=== PATIENT | male | born 1930 | race Caucasian/White ===

== ENCOUNTER 2019-01-01 10:03 | Emergency (ER) | payer MEDICARE, OTHER ==
[2019-01-01] MEDS ORDERED: ONDANSETRON 4 MG TAB.RAPDIS PO ONE (11:09)
--- NOTE | 2019-01-01 11:11 | ER Document Report ---
ED Medical Screen (RME) - General Chief Complaint: Shortness Of Breath Stated Complaint: DIFFICULTY BREATHING Time Seen by Provider: 01/01/19 11:02 Primary Care Provider: CATA IRBY MD [Primary Care Provider] - Follow up as needed Mode of Arrival: Ambulatory Information source: Patient Notes: 88-year-old male presents to ED for complaint of shortness of breath difficulty breathing lightheadedness and nausea. He states he does have a history of COPD and wears a CPAP pot. He also has a history of cholesterol he has a pacemaker for sick sinus syndrome. He is also got hypothyroid and multiple back surgeries. 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 Patient is alert oriented respirations regular and unlabored his jackelyn ng sounds do sound clear at this time. He does have hyperactive bowel sounds in all 4 quadrants. I have greeted and performed a rapid initial assessment of this patient. A comprehensive ED assessment and evaluation of the patient, analysis of test results and completion of medical decision making process will be conducted by an additional ED providers. Dictation of this chart was performed using voice recognition software; therefore, there may be some unintended grammatical errors. - Related Data Allergies/Adverse Reactions: No Known Allergies Allergy (Verified 01/01/19 10:05) Past Medical History - Social History Chew tobacco use (# tins/day): No Frequency of alcohol use: Occasional - Past Medical History Cardiac Medical History: Reports: Hx Hypercholesterolemia Denies: Hx Heart Attack, Hx Hypertension Pulmonary Medical History: Reports: Hx COPD Denies: Hx Asthma Neurological Medical History: Denies: Hx Cerebrovascular Accident, Hx Seizures Endocrine Medical History: Reports: Hx Diabetes Mellitus Type 2 Renal/ Medical History: Denies: Hx Peritoneal Dialysis GI Medical History: Denies: Hx Hepatitis, Hx Hiatal Hernia, Hx Ulcer Infectious Medical History: Denies: Hx Hepatitis Past Surgical History: Reports: Hx Cardiac Surgery - pacemaker, Hx Orthopedic Surgery - back x 2, hand. Denies: Hx Open Heart Surgery, Hx Pacemaker Physical Exam - Vital signs Vitals: Temp Pulse Resp BP Pulse Ox 97.4 F 96 20 123/71 94 01/01/19 10:04 01/01/19 10:04 01/01/19 10:04 01/01/19 10:04 01/01/19 10:04 Course - Vital Signs Vital signs: Temp Pulse Resp BP Pulse Ox 97.4 F 78 20 123/71 95 01/01/19 10:04 01/01/19 11:08 01/01/19 10:04 01/01/19 10:04 01/01/19 11:08 Doctor's Discharge - Discharge Referrals: CATA IRBY MD [Primary Care Provider] - Follow up as needed
--- NOTE | 2019-01-01 12:07 | RADIOLOGY REPORT (SQ) ---
EXAM DESCRIPTION: CHEST 2 VIEWS COMPLETED DATE/TIME: 01/01/2019 11:50 am REASON FOR STUDY: short of breath light headed COMPARISON: None. EXAM PARAMETERS: NUMBER OF VIEWS: two views TECHNIQUE: Digital Frontal and Lateral radiographic views of the chest acquired. RADIATION DOSE: NA LIMITATIONS: none FINDINGS: LUNGS AND PLEURA: No opacities, masses or pneumothorax. No pleural effusion. MEDIASTINUM AND HILAR STRUCTURES: No masses or contour abnormalities. HEART AND VASCULAR STRUCTURES: Cardiomegaly with left chest multi lead pacer. BONES: No acute findings. HARDWARE: None in the chest. OTHER: No other significant finding. IMPRESSION: Cardiomegaly without acute abnormality of the lungs. No focal airspace opacity. TECHNICAL DOCUMENTATION: JOB ID: [id number] [employer]- All Rights Reserved Reading location - IP/workstation name: [email or web address]
[2019-01-01 12:26] LABS: HEMATOCRIT 37.3 % (37.9-51.0); HEMOGLOBIN 12.5 g/dL (13.5-17.0); MEAN CORPUSCULAR HEMOGLOBIN 29.4 pg (27.0-33.4); MEAN CORPUSCULAR HGB CONC 33.6 g/dL (32.0-36.0); MEAN CORPUSCULAR VOLUME 88 fl (80-97); PLATELET COUNT 165 10^3/uL (150-450); RED BLOOD COUNT 4.26 10^6/uL (4.35-5.55); RED CELL DISTRIBUTION WIDTH 16.7 % (11.5-14.0); WHITE BLOOD COUNT 4.5 10^3/uL (4.0-10.5)
[2019-01-01 12:35] LABS: APPEARANCE,URINE CLEAR; BILIRUBIN,URINE NEGATIVE (NEGATIVE); COLOR,URINE YELLOW; GLUCOSE, URINE >=500 mg/dL (NEGATIVE); KETONES,URINE NEGATIVE (NEGATIVE); LEUKOCYTE ESTERASE,URINE NEGATIVE (NEGATIVE); NITRITE,URINE NEGATIVE (NEGATIVE); PROTEIN,URINE NEGATIVE (NEGATIVE); URINE SPECIFIC GRAVITY 1.033
[2019-01-01 12:45] LABS: ALBUMIN 4.1 g/dL (3.5-5.0); ALKALINE PHOSPHATASE 69 U/L (38-126); ANION GAP 9 (5-19); ASPARTATE AMINO TRANSFERASE 26 U/L (17-59); BILIRUBIN,DIRECT 0.2 mg/dL (0.0-0.4); BILIRUBIN,TOTAL 0.6 mg/dL (0.2-1.3); BLOOD UREA NITROGEN 34 mg/dL (7-20); CALCIUM 9.9 mg/dL (8.4-10.2); CARBON DIOXIDE 30 mmol/L (22-30); CHLORIDE 99 mmol/L (98-107); CREATINE KINASE 73 U/L (55-170); GLUCOSE 99 mg/dL (75-110); POTASSIUM 4.7 mmol/L (3.6-5.0); TOTAL PROTEIN 6.8 g/dL (6.3-8.2)
[2019-01-01 12:56] LABS: CREATINE KINASE MB 0.82 ng/mL (<4.55)
[2019-01-01 13:01] LABS: ABSOLUTE LYMPHOCYTES# (MANUAL) 1.4 10^3/uL (0.5-4.7); ABSOLUTE MONOCYTES # (MANUAL) 0.1 10^3/uL (0.1-1.4); BAND NEUTROPHILS % (MANUAL) 1 % (3-5); BASOPHILS % (MANUAL) 2 % (0-2); EOSINOPHILS % (MANUAL) 4 % (0-6); LYMPHOCYTES % (MANUAL) 24 % (13-45); MONOCYTES % (MANUAL) 3 % (3-13); SEGMENTED NEUTROPHILS % (MAN) 60 % (42-78); TOTAL CELLS COUNTED 100
[2019-01-01 13:02] LABS: ANISOCYTOSIS 1+; PLATELET COMMENT ADEQUATE; POLYCHROMASIA SLIGHT; TOXIC GRANULATION SLIGHT
[2019-01-01 13:03] LABS: TROPONIN I < 0.012 ng/mL
--- NOTE | 2019-01-01 13:29 | EKG REPORT ---
SEVERITY:- ABNORMAL ECG - SINUS OR ECTOPIC ATRIAL RHYTHM FIRST DEGREE AV BLOCK BORDERLINE T ABNORMALITIES, INFERIOR LEADS : Confirmed by: Akbar Mauricio MD 01-Jan-2019 13:28:47
--- NOTE | 2019-01-01 18:04 | ER Document Report ---
ED General - General Chief Complaint: Shortness Of Breath Stated Complaint: DIFFICULTY BREATHING Time Seen by Provider: 01/01/19 11:02 Primary Care Provider: CATA IRBY MD [Primary Care Provider] - Follow up as needed Mode of Arrival: Ambulatory Notes: RME note: 88-year-old male presents to ED for complaint of shortness of breath difficulty breathing lightheadedness and nausea. He states he does have a history of COPD and wears a CPAP to sleep. He also has a history of cholesterol he has a pacemaker for sick sinus syndrome. He is also got hypothyroid and multiple back surgeries. 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 Patient is alert oriented respirations regular and unlabored his lung sounds do sound clear at this time. He does have hyperactive bowel sounds in all 4 quadrants. - Related Data Allergies/Adverse Reactions: No Known Allergies Allergy (Verified 01/01/19 10:05) Past Medical History - General Information source: Patient - Social History Smoking Status: Never Smoker Chew tobacco use (# tins/day): No Frequency of alcohol use: Occasional Family History: Reviewed & Not Pertinent Patient has suicidal ideation: No Patient has homicidal ideation: No - Past Medical History Cardiac Medical History: Reports: Hx Hypercholesterolemia Denies: Hx Heart Attack, Hx Hypertension Pulmonary Medical History: Reports: Hx COPD Denies: Hx Asthma Neurological Medical History: Denies: Hx Cerebrovascular Accident, Hx Seizures Endocrine Medical History: Reports: Hx Diabetes Mellitus Type 2 Renal/ Medical History: Denies: Hx Peritoneal Dialysis GI Medical History: Denies: Hx Hepatitis, Hx Hiatal Hernia, Hx Ulcer Infectious Medical History: Denies: Hx Hepatitis Past Surgical History: Reports: Hx Cardiac Surgery - pacemaker, Hx Orthopedic Surgery - back x 2, hand. Denies: Hx Open Heart Surgery, Hx Pacemaker Review of Systems - Review of Systems Constitutional: No symptoms reported EENT: No symptoms reported Cardiovascular: No symptoms reported. denies: Chest pain Respiratory: Short of breath Gastrointestinal: No symptoms reported Genitourinary: No symptoms reported Male Genitourinary: No symptoms reported Musculoskeletal: No symptoms reported Skin: No symptoms reported Hematologic/Lymphatic: No symptoms reported Neurological/Psychological: No symptoms reported Physical Exam - Vital signs Vitals: Temp Pulse Resp BP Pulse Ox 97.4 F 96 20 123/71 94 01/01/19 10:04 01/01/19 10:04 01/01/19 10:04 01/01/19 10:04 01/01/19 10:04 - Notes Notes: PHYSICAL EXAMINATION: GENERAL: Well-appearing, well-nourished and in no acute distress. HEAD: Atraumatic, normocephalic. EYES: Pupils equal round and reactive to light, extraocular movements intact, sclera anicteric, conjunctiva are normal. ENT: Nares patent, oropharynx clear without exudates. Moist mucous membranes. NECK: Normal range of motion, supple without lymphadenopathy LUNGS: Breath sounds clear to auscultation bilaterally and equal. No wheezes rales or rhonchi. HEART: Regular rate and rhythm without murmurs ABDOMEN: Soft, nontender, nondistended abdomen. No guarding, no rebound. No masses appreciated. Musculoskeletal: Normal range of motion, no pitting or edema. No cyanosis. NEUROLOGICAL: Cranial nerves grossly intact. Normal speech, normal gait. Normal sensory, motor exams PSYCH: Normal mood, normal affect. SKIN: Warm, Dry, normal turgor, no rashes or lesions noted. Course - Re-evaluation Re-evalutation: Laboratory 01/01/19 01/01/19 01/01/19 12:05 12:05 12:05 WBC 4.5 RBC 4.26 L Hgb 12.5 L Hct 37.3 L MCV 88 MCH 29.4 MCHC 33.6 RDW 16.7 H Plt Count 165 Total Counted 100 Seg Neutrophils % Not Reportable Seg Neuts % (Manual) 60 Band Neutrophils % 1 L Lymphocytes % Not Reportable Lymphocytes % (Manual) 24 Atypical Lymphs % 6 Monocytes % Not Reportable Monocytes % (Manual) 3 Eosinophils % Not Reportable Eosinophils % (Manual) 4 Basophils % Not Reportable Basophils % (Manual) 2 Absolute Neutrophils Not Reportable Abs Neuts (Manual) 2.7 Absolute Lymphocytes Not Reportable Abs Lymphs (Manual) 1.4 Absolute Monocytes Not Reportable Abs Monocytes (Manual) 0.1 Absolute Eosinophils Not Reportable Absolute Eos (Manual) 0.2 Absolute Basophils Not Reportable Abs Basophils (Manual) 0.1 Toxic Granulation SLIGHT Platelet Comment ADEQUATE Polychromasia SLIGHT Anisocytosis 1+ Sodium 137.9 Potassium 4.7 Chloride 99 Carbon Dioxide 30 Anion Gap 9 BUN 34 H Creatinine 1.19 Est GFR ( Amer) > 60 Est GFR (Non-Af Amer) 58 L Glucose 99 Calcium 9.9 Total Bilirubin 0.6 Direct Bilirubin 0.2 Neonat Total Bilirubin Not Reportable Neonat Direct Bilirubin Not Reportable Neonat Indirect Bili Not Reportable AST 26 ALT 18 Alkaline Phosphatase 69 Creatine Kinase 73 CK-MB (CK-2) 0.82 Troponin I < 0.012 Total Protein 6.8 Albumin 4.1 Urine Color Urine Appearance Urine pH Ur Specific [place] Urine Protein Urine Glucose (UA) Urine Ketones Urine Blood Urine Nitrite Urine Bilirubin Urine Urobilinogen Ur Leukocyte Esterase Urine WBC (Auto) Urine RBC (Auto) U Hyaline Cast (Auto) Squamous Epi Cells Auto Urine Mucus (Auto) Urine Ascorbic Acid 01/01/19 01/01/19 12:05 15:03 WBC RBC Hgb Hct MCV MCH MCHC RDW Plt Count Total Counted Seg Neutrophils % Seg Neuts % (Manual) Band Neutrophils % Lymphocytes % Lymphocytes % (Manual) Atypical Lymphs % Monocytes % Monocytes % (Manual) Eosinophils % Eosinophils % (Manual) Basophils % Basophils % (Manual) Absolute Neutrophils Abs Neuts (Manual) Absolute Lymphocytes Abs Lymphs (Manual) Absolute Monocytes Abs Monocytes (Manual) Absolute Eosinophils Absolute Eos (Manual) Absolute Basophils Abs Basophils (Manual) Toxic Granulation Platelet Comment Polychromasia Anisocytosis Sodium Potassium Chloride Carbon Dioxide Anion Gap BUN Creatinine Est GFR ( Amer) Est GFR (Non-Af Amer) Glucose Calcium Total Bilirubin Direct Bilirubin Neonat Total Bilirubin Neonat Direct Bilirubin Neonat Indirect Bili AST ALT Alkaline Phosphatase Creatine Kinase CK-MB (CK-2) Troponin I < 0.012 Total Protein Albumin Urine Color YELLOW Urine Appearance CLEAR Urine pH 5.0 Ur Specific [place] 1.033 Urine Protein NEGATIVE Urine Glucose (UA) >=500 H Urine Ketones NEGATIVE Urine Blood NEGATIVE Urine Nitrite NEGATIVE Urine Bilirubin NEGATIVE Urine Urobilinogen 2.0 H Ur Leukocyte Esterase NEGATIVE Urine WBC (Auto) 1 Urine RBC (Auto) 2 U Hyaline Cast (Auto) 7 Squamous Epi Cells Auto 1 Urine Mucus (Auto) RARE Urine Ascorbic Acid NEGATIVE Chest X-Ray 01/01/19 11:08 IMPRESSION: Cardiomegaly without acute abnormality of the lungs. No focal airspace opacity. Patient's work-up today was unremarkable. At the time of my initial evaluation he has already been seen by the provider in triage all labs and imaging have resulted. Patient has been here approximately 7 hours at the time of my initial evaluation. Patient reports that he feels well and wants to go home. He did allow me to perform physical examination of him which was unremarkable. His lung sounds are clear and equal bilaterally and he denies any shortness of breat h or chest pain. I do not see any reason to keep patient here in the emergency department, he will be discharged home with strict ED return precautions. Patient and verbalized understanding and agreement with plan, they agreed to ED return precautions and he will follow-up with his primary care provider. The patient's emergency department workup and current diagnosis were explained to the patient and or family. Follow-up instructions were provided. Medications if prescribed were discussed. Instructions for when to return to the emergency department including specific worrisome symptoms were discussed with the patient and/or family. - Vital Signs Vital signs: Temp Pulse Resp BP Pulse Ox 97.6 F 77 16 127/67 H 95 01/01/19 18:07 01/01/19 18:07 01/01/19 18:07 01/01/19 18:07 01/01/19 18:07 - Laboratory Result Diagrams: 01/01/19 12:05 01/01/19 12:05 Laboratory results interpreted by me: 01/01/19 01/01/19 01/01/19 12:05 12:05 12:05 RBC 4.26 L Hgb 12.5 L Hct 37.3 L RDW 16.7 H Band Neutrophils % 1 L BUN 34 H Est GFR (Non-Af Amer) 58 L Urine Glucose (UA) >=500 H Urine Urobilinogen 2.0 H Discharge - Discharge Clinical Impression: Shortness of breath, Nausea Condition: Stable Disposition: HOME, SELF-CARE Additional Instructions: Your work-up here in the emergency department today was reassuring. Your cardiac enzymes were normal. These were repeated twice. Your chest x-ray was also unremarkable. A copy of your labs and imaging has been provided to you for your primary care providers review. Please return to the emergency department for any new or worsening symptoms, we are happy to reevaluate you at any time. A prescription has been provided for the Zofran since she said that helped with your nausea. Please take this as prescribed. Prescriptions: Ondansetron [Zofran Odt 4 mg Tablet] 1 - 2 tab PO Q4H PRN #15 tab.rapdis PRN Reason: For Nausea/Vomiting Referrals: CATA IRBY MD [Primary Care Provider] - Follow up as needed
[2019-01-01 18:09] VITALS: BP 127/67
== END 2019-01-01 18:15 | disposition home or self-care (01) ==
LOC: ER 10:03
DX: J44.9 Chronic obstructive pulmonary disease, unspecified (principal); R11.0 Nausea; R06.02 Shortness of breath; R42 Dizziness and giddiness; I51.7 Cardiomegaly; E11.9 Type 2 diabetes mellitus without complications; I49.5 Sick sinus syndrome; Z95.0 Presence of cardiac pacemaker; Z85.820 Personal history of malignant melanoma of skin
CPT/HCPCS: 93005; 99285; 36415; 82553; 82550; 85025; 80053; 81001; 84484; 71046; 93010; A9270; S0119